=== PATIENT | female | born 1985 ===

== ENCOUNTER 2017-03-15 13:55 | Emergency (ER) | payer MEDICAID ==
[2017-03-15 14:10] VITALS: BP 108/41; PULSE 71; RESP 18; TEMP 97; O2SAT 98
--- NOTE | 2017-03-15 14:52 | ED PDOC ---
HPI: Eye Injury/Pain Time Seen by Provider: 03/15/17 14:30 Chief Complaint (Nursing): Eye Problem Chief Complaint (Provider): Right eye redness History Per: Patient History/Exam Limitations: no limitations Onset/Duration Of Symptoms: Days (3) Current Symptoms Are (Timing): Still Present Additional Complaint(s): Patient is a 32 y/o female with no significant past medical history presenting to the emergency department for right eye redness ongoing for three days with associated mild blurry vision. Reports that on Sunday she woke up with redness and irritation which has since been improving. She also notes having diarrhea for two days with one episode of vomiting this morning. Reports feeling better at present. Denies fever, chills, use of contact lens or glasses, or other complaints. PCP: None provided. Past Medical History Reviewed: Historical Data, Nursing Documentation, Vital Signs Vital Signs: Last Vital Signs Temp 97 F L 03/15/17 14:08 Pulse 71 03/15/17 14:08 Resp 18 03/15/17 14:08 BP 108/41 L 03/15/17 14:08 Pulse Ox 98 03/15/17 14:08 - Medical History PMH: No Chronic Diseases - Surgical History Surgical History: No Surg Hx - Family History Family History: States: No Known Family Hx - Social History Current smoker - smoking cessation education provided: No Ex-Smoker (has not smoked in the last 12 months): No Alcohol: None Drugs: Denies - Home Medications Home Medications: Ambulatory Orders Medication Instructions Recorded Famotidine [Pepcid] 20 mg PO BID #10 tab 03/15/17 Ondansetron [Zofran Odt] 4 mg PO Q8 PRN #5 odt 03/15/17 - Allergies Allergies/Adverse Reactions: Allergies Allergy/AdvReac Type Severity Reaction Status Date / Time No Known Allergies Allergy Verified 03/15/17 14:10 Review of Systems ROS Statement: Except As Marked, All Systems Reviewed And Found Negative Constitutional: Negative for: Fever, Chills Eyes: Positive for: Vision Change (mild blurry vision), Redness (right eye with irritation) Gastrointestinal: Positive for: Vomiting, Diarrhea Physical Exam - Reviewed Nursing Documentation Reviewed: Yes Vital Signs Reviewed: Yes - Physical Exam Appears: Positive for: Well, Non-toxic, No Acute Distress Head Exam: Positive for: ATRAUMATIC, NORMAL INSPECTION, NORMOCEPHALIC Skin: Positive for: Normal Color, Warm, Dry Eye Exam: Positive for: PERRL (Visual acuity right 20/20, left 20/25, both 20/15 ), Other (No fluorescein uptake. Fading subconjunctival hemorrhage noted on lateral aspect of right eye, not involving the pupil.) Neck: Positive for: Normal Cardiovascular/Chest: Positive for: Regular Rate, Rhythm Respiratory: Positive for: Normal Breath Sounds. Negative for: Accessory Muscle Use, Respiratory Distress Gastrointestinal/Abdominal: Positive for: Normal Exam, Soft. Negative for: Tenderness Extremity: Positive for: Normal ROM Neurologic/Psych: Positive for: Alert, Oriented (x3) - ECG O2 Sat by Pulse Oximetry: 98 (RA) Pulse Ox Interpretation: Normal Medical Decision Making Medical Decision Making: Time: 14:48 Initial impression: Right eye redness Initial plan: Zofran 4 mg PO 15:45 Patient is stable for discharge. Prescribed Pepcid and Zofran. Instructed patient to follow up with referred clinic. Return to ED if symptoms worsen. Clinical impression: Conjunctival hemorrhage and gastroenteritis ~ Scribe Attestation: Documented by Nina Jenkins, acting as a scribe for ALESSANDRA Ag. Provider Scribe Attestation: All medical record entries made by the Scribe were at my direction and personally dictated by me. I have reviewed the chart and agree that the record accurately reflects my personal performance of the history, physical exam, medical decision making, and the department course for this patient. I have also personally directed, reviewed, and agree with the discharge instructions and disposition. Disposition - Clinical Impression Clinical Impression: Conjunctival hemorrhage, Gastroenteritis - Patient ED Disposition Is Patient to be Admitted: No Counseled Patient/Family Regarding: Diagnosis, Need For Followup, Rx Given - Disposition Referrals: [facility] [Outside] Blake Leone MD [Staff Provider] - Disposition: Routine/Home Disposition Time: 15:45 Condition: FAIR Prescriptions: Famotidine [Pepcid] 20 mg PO BID #10 tab Ondansetron [Zofran Odt] 4 mg PO Q8 PRN #5 odt PRN Reason: Nausea/Vomiting Instructions: Subconjunctival Hemorrhage (ED), Gastroenteritis (ED) Forms: [employer] (Palestinian) Print Language: CROATIAN
== END 2017-03-15 16:28 | disposition home or self-care (01) ==
LOC: H.ER 13:55
DX: H11.31 Conjunctival hemorrhage, right eye (principal); K52.9 Noninfective gastroenteritis and colitis, unspecified